=== PATIENT | male | born 1980 | race Caucasian/White ===

== ENCOUNTER 2017-09-30 13:12 | Emergency (ER) | payer OTHER ==
[2017-09-30] MEDS ORDERED: Ibuprofen TAB* 400 MG PO ONE (14:23)
--- NOTE | 2017-09-30 14:24 | UC ---
Shoulder Pain HPI - HPI Summary HPI Summary: Patient to urgent care today after [place] landing on right shoulder. Decrease ROM and humeral head pain with palpation - History of Current Complaint Chief Complaint: UCUpperExtremity Stated Complaint: SHOULDER INJURY Time Seen by Provider: 09/30/17 14:05 Hx Obtained From: Patient Onset/Duration: Sudden Onset, Lasting Days - 1 Timing: Constant Location Of Pain: Is Discrete @ - right humeral head Pain Intensity: 8 Pain Scale Used: 0-10 Numeric Character: Aching, Throbbing Aggravating Factor(s): Movement Alleviating Factor(s): Rest, Ice Associated Signs And Symptoms: Positive: Negative Related History: Dominant Hand Right - Allergies/Home Medications Allergies/Adverse Reactions: Allergies Allergy/AdvReac Type Severity Reaction Status Date / Time No Known Allergies Allergy Verified 09/30/17 13:31 Home Medications: Home Medications Ativan 0.5 MG TAB (*) 0.5 mg PO ONCE PRN 09/30/17 [History Confirmed 09/30/17] Methocarbamol TAB* [Robaxin 500 MG TAB*] 500 mg PO WEEKLY PRN 09/30/17 [History Confirmed 09/30/17] Varenicline 0.5 mg Tab(Nf) [Chantix 0.5 MG TAB(NF)] 1 mg PO DAILY 09/30/17 [ History Confirmed 09/30/17] Venlafaxine HCl [Effexor XR-] 37.5 mg PO DAILY 09/30/17 [History Confirmed 09/30] lamoTRIgine [Lamictal (Green)] 1 kit PO DAILY 09/30/17 [History Confirmed ] PMH/Surg Hx/FS Hx/Imm Hx Previously Healthy: No Psychological History: Anxiety, Post Traumatic Stress Disorder - Family History Known Family History: Positive: None - Social History Occupation: Disabled Lives: With Family Alcohol Use: Occasionally Substance Use Type: Marijuana Smoking Status (MU): Former Smoker Review of Systems Constitutional: Negative Skin: Negative Eyes: Negative ENT: Negative Respiratory: Negative Cardiovascular: Negative Gastrointestinal: Negative Genitourinary: Negative Motor: Decreased ROM - right shoulder Neurovascular: Negative Musculoskeletal: Arthralgia - right humeral head Neurological: Negative Psychological: Negative Is Patient Immunocompromised?: No All Other Systems Reviewed And Are Negative: Yes Physical Exam Triage Information Reviewed: Yes Appearance: Well-Appearing, Well-Nourished, Pain Distress Vital Signs: Initial Vital Signs Temp 97.8 F 09/30/17 13:28 Pulse 73 09/30/17 13:28 Resp 15 09/30/17 13:28 BP 127/74 09/30/17 13:28 Pulse Ox 99 09/30/17 13:28 Vital Signs Reviewed: Yes Eye Exam: Normal Eyes: Positive: Conjunctiva Clear ENT Exam: Normal ENT: Positive: Normal ENT inspection, Hearing grossly normal. Negative: Nasal congestion, Trismus, Muffled voice, Hoarse voice Dental Exam: Normal Neck exam: Normal Neck: Positive: Supple, Nontender Respiratory Exam: Normal Respiratory: Positive: Chest non-tender, Lungs clear, Normal breath sounds, No respiratory distress, No accessory muscle use Cardiovascular Exam: Normal Cardiovascular: Positive: RRR, No Murmur, Pulses Normal, Brisk Capillary Refill Musculoskeletal Exam: Other Musculoskeletal: Positive: Strength Limited @ - right shoulder, ROM Limited @ - right shoulder Neurological Exam: Normal Neurological: Positive: Alert, Muscle Tone Normal Psychological Exam: Normal Skin Exam: Normal Diagnostics - Radiology No standard instances Xray Interpretation: Positive (See Comments) Radiology Interpretation Completed By: ED Physician, Radiologist - Patient Name : MALVIN BROWN Medical Record#: [id number] Ordering Physician: Esperanza Canales NP Acct.#: [id number] : 1980 Age: 37 Sex: M Location: [facility] Exam Date: 09/30/17 1423 ADM Status: REG ER Order Information: SHOULDER RIGHT 2+ VWS Accession Number: [id number] CPT: 43319 HISTORY: injury, right shoulder pain COMPARISONS: None VIEWS: 4, Frontal internal rotation, external rotation, outlet, and axillary views of the right shoulder FINDINGS: BONE DENSITY: Normal. BONES: There is a small bone fragment with cortical irregularity along the humeral head posteriorly which may represent a small Hill -Sachs fracture. JOINTS: There is no arthropathy. ALIGNMENT: There is no dislocation. SOFT TISSUES: Unremarkable. OTHER FINDINGS: None. IMPRESSION: QUESTIONABLE SMALL HILL-SACHS FRACTURE OF THE HUMERAL HEAD. NO APPRECIABLE OSSEOUS BANKART LESION. <Electronically signed by Lázaro Jaeger MD in [place]> 09/30/17 1509 Dictated By: Lázaro Jaeger MD Dictated Date/Time: 09/30/17 1509 Transcribed Date/Time: 09/30/17 1507 Copy to: CC:Esperanza Canales [employer] OPERATOR; Topher Tirado MD; No Primary Care Phys,NOPCP Imaging - [facility] Imaging - [facility] Care Imaging - [facility] [address] [place] [address] [address] [address] ph ) ph [phone]) ph ([phone]) This report is only to be considered final once signed by the Provider(s) as displayed in the "< Electronically Signed by >" field (s). Absence of a signature indicates the report is in a draft status and still needs to be finalized. In the event this document was created by someone other than the signing Provider, the individual initiating the document will be listed in the "Entered by:" or "Dictated by:" luke. 1 of 1 Shoulder Course/Dx - Course Assessment/Plan: Rest Ice Sling Pain med,Nsaid follow with orthopedic in [facility] in 3-5 days - Differential Dx/Diagnosis Provider Diagnoses: right hemeus fx, Hill-sachs fx Discharge - Sign-Out/Discharge Documenting (check all that apply): Patient Departure - Discharge Plan Condition: Stable Disposition: HOME Prescriptions: Hydrocodone/Acetaminophen [Hydrocodone-Acetamin 5-325 mg] 1 each PO QID PRN #12 tablet MDD 4 PRN Reason: pain Ibuprofen TAB* [Motrin TAB* 800 MG] 800 mg PO Q8H PRN #30 tab PRN Reason: pain Patient Education Materials: R.I.C.E. Treatment (ED), Shoulder Fracture in Children (ED) Referrals: No Primary Care Phys,NOPCP [Primary Care Provider] - Additional Instructions: [facility] - Billing Disposition and Condition Condition: STABLE Disposition: Home
--- NOTE | 2017-09-30 15:12 | RAD ---
HISTORY: injury, right shoulder pain COMPARISONS: None VIEWS: 4, Frontal internal rotation, external rotation, outlet, and axillary views of the right shoulder FINDINGS: BONE DENSITY: Normal. BONES: There is a small bone fragment with cortical irregularity along the humeral head posteriorly which may represent a small Hill-Sachs fracture. JOINTS: There is no arthropathy. ALIGNMENT: There is no dislocation. SOFT TISSUES: Unremarkable. OTHER FINDINGS: None. IMPRESSION: QUESTIONABLE SMALL HILL-SACHS FRACTURE OF THE HUMERAL HEAD. NO APPRECIABLE OSSEOUS BANKART LESION.
[2017-09-30 15:42] VITALS: BP 113/70
== END 2017-09-30 15:53 | disposition home or self-care (01) ==
LOC: UCEAST 13:12
DX: S49.91XA Unspecified injury of right shoulder and upper arm, initial encounter (principal); W19.XXXA Unspecified fall, initial encounter; Y93.89 Activity, other specified; Y92.89 Other specified places as the place of occurrence of the external cause; F41.9 Anxiety disorder, unspecified; F43.10 Post-traumatic stress disorder, unspecified; Z87.891 Personal history of nicotine dependence
CPT/HCPCS: 99203; A9270-GY; G0463